=== PATIENT | female | born 1950 | race Caucasian/White ===

== ENCOUNTER 2018-08-16 06:10 | Day surgery (SDC) | payer MEDICARE, OTHER ==
[2018-08-16] MEDS ORDERED: PROPOFOL 20 ML (07:22)
[2018-08-16] MEDS ORDERED: FENTAnyl 50 MCG/ML VIAL (07:22)
[2018-08-16] MEDS ORDERED: ONDANSETRON 4 MG INJ IV (08:00)
== END 2018-08-16 12:02 | disposition home or self-care (01) ==
LOC: GIL 06:10
DX: Z12.11 Encounter for screening for malignant neoplasm of colon (principal); K29.50 Unspecified chronic gastritis without bleeding; K64.8 Other hemorrhoids; K57.30 Diverticulosis of large intestine without perforation or abscess without bleeding; K21.9 Gastro-esophageal reflux disease without esophagitis
CPT/HCPCS: 43239; 88305; 88312